=== PATIENT | male | born 1960 | race Two or more races ===

== ENCOUNTER 2018-02-17 09:35 | Outpatient (CLI) | payer OTHER | END 2018-02-17 09:44 | disposition home or self-care (01) | LOC: SONOGRAMA 09:35 | DX: E04.1 Nontoxic single thyroid nodule (principal) ==

== ENCOUNTER 2018-03-23 10:18 | Outpatient (CLI) | payer OTHER ==
[~2018-03-23] VITALS: Ht 172.7 cm; Wt 81.6 kg
== END 2018-03-23 10:30 | disposition home or self-care (01) ==
LOC: OFIC 805 10:18
DX: C73 Malignant neoplasm of thyroid gland (principal); R22.1 Localized swelling, mass and lump, neck; J34.2 Deviated nasal septum

== ENCOUNTER → 2019-09-06 14:54 | Outpatient (CLI) | payer OTHER | END | disposition home or self-care (01) | LOC: LAB 14:54 | DX: E03.8 Other specified hypothyroidism (principal) ==

== ENCOUNTER → 2019-09-06 | Outpatient (CLI) | payer OTHER | END | disposition home or self-care (01) | LOC: MAMO-SONO 10:45 → SONOGRAMA 13:33 | DX: C73 Malignant neoplasm of thyroid gland (principal) ==

== ENCOUNTER 2022-01-20 12:34 | Emergency (ER) | payer OTHER ==
[~2022-01-20] VITALS: Ht 172.7 cm; Wt 73.0 kg
[2022-01-20] MEDS ORDERED: SYNTHROID137 MCG PO (12:56)
[2022-01-20] MEDS ORDERED: FENOFIBRATE150 MG PO (12:59)
== END 2022-01-20 14:11 | disposition home or self-care (01) ==
LOC: ER 12:34
DX: T78.1XXA Other adverse food reactions, not elsewhere classified, initial encounter (principal); T78.3XXA Angioneurotic edema, initial encounter; X58.XXXA Exposure to other specified factors, initial encounter; Z88.2 Allergy status to sulfonamides